=== PATIENT | female | born 1990 | race Two or more races ===

== ENCOUNTER 2018-08-23 13:03 | Emergency (ER) | payer BC, OTHER ==
[~2018-08-23] VITALS: Ht 154.9 cm; Wt 53.0 kg
[2018-08-23 13:30] VITALS: BP 98/67
== END 2018-08-23 15:14 | disposition left against medical advice (07) ==
LOC: ED 15:08
DX: S09.90XA Unspecified injury of head, initial encounter (principal); Z53.21 Procedure and treatment not carried out due to patient leaving prior to being seen by health care provider; X58.XXXA Exposure to other specified factors, initial encounter; Y93.89 Activity, other specified; Y92.89 Other specified places as the place of occurrence of the external cause; Y99.8 Other external cause status

== ENCOUNTER 2019-08-22 16:45 | Emergency (ER) | payer OTHER ==
[~2019-08-22] VITALS: Ht 154.9 cm; Wt 58.9 kg
[2019-08-22] MEDS ORDERED: ALPR1TAB2 PO (17:44)
[2019-08-22] MEDS ORDERED: PRAZ5CAP2 PO (17:44)
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
--- NOTE | 2019-08-22 18:22 | NUR ---
[facility] TO BEDSIDE AT THIS TIME TO TAKE STATEMENT FROM PT
[2019-08-22 18:25] VITALS: BP 135/96
--- NOTE | 2019-08-22 18:50 | NUR ---
[facility] FINISHED WITH REPORT, OFFICER STS WILL SET UP SART FOR PT. CHART PUT UP FOR RECHECK
== END 2019-08-22 19:08 | disposition home or self-care (01) ==
LOC: ED 19:00
DX: T74.21XA Adult sexual abuse, confirmed, initial encounter (principal); Y04.8XXA Assault by other bodily force, initial encounter; Y93.89 Activity, other specified; Y92.009 Unspecified place in unspecified non-institutional (private) residence as the place of occurrence of the external cause; Y99.8 Other external cause status
CPT/HCPCS: 99281